=== PATIENT | female | born 1990 | race Caucasian/White ===

== ENCOUNTER 2019-12-23 22:37 | Emergency (ER) | payer OTHER, SELFPAY ==
[2019-12-23 22:39] VITALS: BP 148/105; PULSE 118; RESP 18; TEMP 36.6; O2SAT 100
[2019-12-24] VITALS: BP 139/98; PULSE 119; RESP 18
--- NOTE | 2019-12-24 01:12 | ED.SKABFB ---
HPI - Skin/Abscess/Foreign Bdy General Chief complaint: Skin/Abscess/Foreign Body Stated complaint: sunburn that is turning into hives Time Seen by Provider: 12/24/19 00:18 Source: patient Mode of arrival: ambulatory Limitations: no limitations History of Present Illness HPI narrative: This patient is a 29 year old female who presents for evaluation a sunburn. PAtient states she suffered a sunburn to right lower leg and bilateral hands on Thursday. She has been using aloe vera and CBD cream . She reports the creams are not providing any relief. She denies nausea, vomiting or fever. Related Data Allergies Allergy/AdvReac Type Severity Reaction Status Date / Time Penicillins Allergy Severe Unknown Verified 01/31/19 22:31 hydrocodone Allergy Unknown Unknown Verified 01/31/19 22:31 Review of Systems Review of Systems: All systems reviewed & are unremarkable except as noted in HPI and below Constitutional: Constitutional: Denies chills and Denies fever(s) Cardiovascular: Cardiovascular: Denies chest pain Respiratory: Respiratory: Denies dyspnea Gastrointestinal: Gastrointestinal: Denies nausea Musculoskeletal: Musculoskeletal: Reports myalgias Integumentary/Breasts: Skin/Breast: Reports pruritus and Reports rash PMFSH Past Medical History Medical History (Updated 12/24/19 @ 01:21 by Marquita Pack MD) Patient denies medical problems Surgical History Surgical History (Updated 12/24/19 @ 01:13 by Marquita Pack MD) No significant past surgical history Social History Social History (Updated 12/24/19 @ 01:13 by Marquita Pack MD) Smoking status: Never smoker Exam Const: General: no acute distress and alert Orientation/consciousness: patient oriented x3 Resp: Effort & Inspection: normal respiratory effort GI: GI Palp: Yes Soft to palpation Auscultation: normal bowel sounds Skin: Other: bilateral dorsum of hands and wrist with pink maculopapular rash. Neuro: General: patient oriented x3 and moves all extremities Extrem: General: no pedal edema Psych: Mental Status: mental status grossly normal Affect: normal affect Course Vital Signs Vital signs: Vital Signs Temperature 97.9 F 12/23/19 22:39 Pulse Rate 118 H 12/23/19 22:39 Respiratory Rate 18 12/23/19 22:39 Blood Pressure 148/105 H 12/23/19 22:39 Pulse Oximetry 100 12/23/19 22:39 Temperature 97.9 F 12/23/19 22:39 Pulse Rate 108 H 12/24/19 01:45 Respiratory Rate 18 12/24/19 01:45 Blood Pressure 134/88 12/24/19 01:45 Pulse Oximetry 98 12/24/19 01:45 Discharge Plan Discharge Clinical Impression: Contact dermatitis Qualifiers: Contact dermatitis type: unspecified Patient Disposition: Home, Self-Care Condition: Stable Instructions: Antibiotic Form, Contact Dermatitis (ED) Prescriptions: New loratadine [Claritin] 10 mg tablet 10 mg PO DAILY PRN (Reason: allergy symptoms) Qty: 14 RF: 0 hydrocortisone 2.5 % cream 1 applic TOPICAL TID PRN (Reason: itching) Qty: 20 RF: 0 Follow-up/Referrals: UNKNOWN,DOCTOR [Primary Care Provider] - Discharge Date/Time: 12/24/19 01:50
[2019-12-24] MEDS: methylPREDNISolone SOD SUCC 125 MG VIAL IM (01:41)
[2019-12-24 01:45] VITALS: BP 134/88; PULSE 108; RESP 18; O2SAT 98
== END 2019-12-24 01:50 | disposition home or self-care (01) ==
PROVIDERS: Emergency Provider General Practice
DX: L30.9 Dermatitis, unspecified (principal)
CPT/HCPCS: 96372; 99283; J2930

== ENCOUNTER 2022-08-08 04:16 | Emergency (ER) | payer BC, OTHER, SELFPAY ==
--- NOTE | ~2022-08-08 | CT_ITS ---
CT of the Abdomen and Pelvis: Indication: Abdominal pain Technique: 2.5 mm axial scans were obtained through the abdomen and pelvis following intravenous adm inistration of 100 cc of Omnipaque 350. Dose reduction technique was used on this scan by utilizing a utomated exposure control and iterative reconstruction technique. The dose-length product (DLP) was 1 510.00 mGy-cm. Findings: Scans through the lung bases are unremarkable. The liver, spleen, pancreas, gallbladder, adrenals and kidneys are within normal limits. No evidence of aortic aneurysm. No lymphadenopathy. No bowel obstruction or bowel wall thickening. There is no evidence to suggest acute appendicitis. Images through the pelvis were performed. Urinary bladder unremarkable. No adnexal mass seen. No asci olga lidia. No ascites. Impression: No significant abnormalities seen. Reviewed, dictated and finalized at [facility]. Impression: No significant abnormalities seen.
[2022-08-08 04:21] VITALS: BP 151/89; PULSE 107; RESP 20; TEMP 36.1; O2SAT 100
[2022-08-08 05:25] LABS: Basophils Absolute Auto 0.1 K/mm3 (0.0-0.1); Basophils Percent Auto 0.5 % (0.2-1.2); Eosinophils Absolute Auto 0.2 K/mm3 (0-0.3); Eosinophils Percent Auto 1.5 % (0-4.4); Hematocrit 35.8 % (37.0-47.0); Immature Granulocyte Absolute 0.04 K/mm3 (0.00-0.031); Immature Granulocyte Percent A 0.4 % (0-0.5); Lymphocytes Absolute Auto 2.58 K/mm3 (0.9-3.2); Lymphocytes Percent Auto 23.4 % (18.3-44.2); Mean Corpuscular HGB Conc 30.7 g/dl (32-36); Mean Corpuscular Hemoglobin 22.7 pg (26-34); Mean Platelet Volume 8.9 fl (7.4-10.4); Monocytes Absolute Auto 0.7 K/mm3 (0.1-0.6); Monocytes Percent Auto 6.5 % (2.6-8.5); Neutrophils Absolute Auto 7.5 K/mm3 (1.3-6.7); Neutrophils Percent Auto 67.7 % (45.5-73.1); Platelet Count Result 416 k/mm3 (150-375); Red Blood Count 4.84 M/mm3 (4.2-5.4); Red Cell Distribution Width 16.6 % (11.5-14.5)
[2022-08-08] MEDS: SODIUM CHLORIDE 0.9% IV 1,000 ML 999 ML IV CONT (05:28)
[2022-08-08] MEDS: MORPHINE SULFATE (*CRX) 4 MG/ML INJ IV PUSH (05:28)
[2022-08-08] MEDS: PROCHLORPERAZINE EDISYLATE 10 MG/2 ML VIAL IV PUSH (05:28)
[2022-08-08 05:35] LABS: Alanine Aminotransferase 22 U/L (6-35); Albumin Level 4.5 g/dL (3.5-5.1); Alkaline Phosphatase 92 U/L (38-126); Anion Gap 9 mmol/L (8-16); Aspartate Amino Transferase 23 U/L (14-36); Bilirubin,Total 0.5 mg/dL (0.2-1.3); Blood Urea Nitrogen 9 mg/dL (7-17); Calcium 9.3 mg/dL (8.4-10.2); Carbon Dioxide 26 mmol/L (22-30); Chloride 103 mmol/L (98-107); Estimated CRCL calculation 106 ml/min; Estimated Glomerular Filt Rate > 60; Glucose 98 mg/dL (65-110); Lipase 63 U/L (23-300); Potassium 3.7 mmol/L (3.4-5.0); Sodium 138 mmol/L (137-145)
[2022-08-08 06:04] LABS: Appearance Urine Clear (Clear); Bacteria Urine None Seen /hpf; Bilirubin Urine Negative (Negative); Blood Urine Negative (Negative); Color Urine Yellow (Yellow); Glucose Urine UA Negative (Negative); Ketones Urine Negative (Negative); Leukocyte Esterase Ur Trace LEU/UL (Negative); Nitrate Urine Negative (Negative); Non Pathogenic Casts 0-2; Protein Urine Negative (Negative); RBC Urine 0-2 /hpf (0-2); Specific Grav Ur 1.024 (1.001-1.035); Squamous Epithelial Cell Urine Few /hpf (Few); Urobilinogen Urine 0.2 mg/dL (<2.0); WBC Urine 0-5 /hpf; pH Urine 5.5 (5.0-9.0)
[2022-08-08 06:33] LABS: Anisocytosis 1+ (NORMAL); Platelet Estimate Increased (Adequate)
[2022-08-08 06:34] LABS: Schistocytes None Seen (NORMAL)
--- NOTE | 2022-08-08 06:37 | ED.GENADULT ---
HPI - General Adult General Chief complaint: Nausea/Vomiting/Diarrhea Stated complaint: N/V/D Time Seen by Provider: 08/08/22 04:48 History of Present Illness HPI narrative: Patient 31-year-old female who presents the emergency department with chief complaint of abdominal pain nausea vomiting and diarrhea. Patient reports start about 4 hours prior to arrival reports she had difficulty keeping anything down reports that she had diffuse cramping throughout her abdomen. Patient reports symptoms not improved by anything reports medicine. Related Data Allergies Allergy/AdvReac Type Severity Reaction Status Date / Time Penicillins Allergy Severe Unknown Verified 01/31/19 22:31 hydrocodone Allergy Unknown Unknown Verified 01/31/19 22:31 Review of Systems Review of Systems: A 10 system review of systems was completed on the patient and is negative except for what is stated in the HPI. Nursing and ancillary documentation was reviewed. PMFSH Past Medical History Medical History Patient denies medical problems Surgical History Surgical History No significant past surgical history Social History Social History Smoking status: Never smoker Exam Narrative: GENERAL: Well-appearing, well-nourished, and in no acute distress. HEAD: Normocephalic, atraumatic. EYES: PERRLA and EOMI. ENT: Nares clear, no rhinorrhea or epistaxis. Mucous membranes moist. NECK: Supple. CHEST: Clear to auscultation. No respiratory distress. HEART: Regular rate and rhythm. No murmur heard. Normal peripheral pulses. ABDOMEN: Soft, diffuse mild tenderness, nondistended, normal active bowel sounds. EXTREMITIES: Normal range of motion. No edema. SKIN: Warm, dry, no rash. NEURO: No focal deficits. Alert and oriented x3. PSYCH: Normal mood and affect. Course Vital Signs Vital signs: Vital Signs Temperature 36.1 C L 08/08/22 04:21 Pulse Rate 107 H 08/08/22 04:21 Respiratory Rate 20 08/08/22 04:21 Blood Pressure 151/89 H 08/08/22 04:21 Pulse Oximetry 100 08/08/22 04:21 Temperature 36.1 C L 08/08/22 04:21 Pulse Rate 107 H 08/08/22 04:21 Respiratory Rate 20 08/08/22 04:21 Blood Pressure 151/89 H 08/08/22 04:21 Pulse Oximetry 100 08/08/22 04:21 Medical Decision Making MDM Narrative Medical decision making narrative: Differential diagnosis includes colitis diverticulitis, appendicitis, gastroenteritis. Laboratory studies were obtained which showed a normal CBC with a white count of 11.0 electrolytes including liver enzymes and lipase were normal CT scan of the abdomen pelvis showed no acute abnormality Vital Signs Vital Signs: Vital Signs Temperature 36.1 C L 08/08/22 04:21 Pulse Rate 107 H 08/08/22 04:21 Respiratory Rate 20 08/08/22 04:21 Blood Pressure 151/89 H 08/08/22 04:21 Pulse Oximetry 100 08/08/22 04:21 Temperature 36.1 C L 08/08/22 04:21 Pulse Rate 107 H 08/08/22 04:21 Respiratory Rate 20 08/08/22 04:21 Blood Pressure 151/89 H 08/08/22 04:21 Pulse Oximetry 100 08/08/22 04:21 Lab Data 08/08/22 05:17 08/08/22 05:17 Labs: Lab Results 08/08/22 08/08/22 08/08/22 Range/Units 05:17 05:17 05:17 WBC 11.0 H (4.5-10.0) K/mm3 RBC 4.84 (4.2-5.4) M/mm3 Hgb 11.0 L (12.0-15.0) g/dL Hct 35.8 L (37.0-47.0) % MCV 74.0 L (80-100) fl MCH 22.7 L (26-34) pg MCHC 30.7 L (32-36) g/dl RDW 16.6 H (11.5-14.5) % Plt Count 416 H (150-375) k/mm3 MPV 8.9 (7.4-10.4) fl Immature Gran % (Auto) 0.4 (0-0.5) % Neut % (Auto) 67.7 (45.5-73.1) % Lymph % (Auto) 23.4 (18.3-44.2) % Early % (Auto) 6.5 (2.6-8.5) % Eos % (Auto) 1.5 (0-4.4) % Baso % (Auto) 0.5 (0.2-1.2) % Lymph # (Auto) 2.58 (0.9-3.2)
[2022-08-08 06:51] LABS: Add Urine Microscopic? YES
[2022-08-08 06:55] VITALS: BP 141/84; PULSE 69; RESP 18; TEMP 36.6; O2SAT 99
== END 2022-08-08 07:00 | disposition home or self-care (01) ==
PROVIDERS: Emergency Provider Emergency Medicine
DX: K52.9 Noninfective gastroenteritis and colitis, unspecified (principal)
CPT/HCPCS: 36415; 74177; 80053; 81001; 81025; 83690; 85025; 96361; 96374; 96375; 99284; J0780; J2270; J7030; Q9967

== ENCOUNTER 2023-03-15 03:22 | Emergency (ER) | payer OTHER, SELFPAY ==
[2023-03-15] VITALS (13 sets, daily range): BP systolic 114–159; BP diastolic 74–96; PULSE 89–111; RESP 13–21; TEMP 36.9; O2SAT 97–100
--- NOTE | ~2023-03-15 | XR_ITS ---
EXAMINATION: XR chest 1V portable DATE: 03/15/2023 07:04 INDICATION: Cough. TECHNIQUE: A single frontal view of the chest was obtained. COMPARISON: Chest 2 views 03/15/2018, CT abdomen and pelvis 08/08/2022 FINDINGS: There is no pneumonia, pleural effusion, or pneumothorax. The heart size is normal. IMPRESSION: 1. No acute cardiopulmonary disease. Reviewed, dictated and finalized at location E. [facility]
[2023-03-15 06:48] LABS: Influenza A QL RT-PCR Negative (Negative); Influenza B QL RT-PCR Negative (Negative); RSV RNA, RT-PCR Negative (Negative); SARS-CoV-2 RNA PCR Negative (Negative)
--- NOTE | 2023-03-15 06:58 | ED.GENADULT ---
HPI - General Adult General Chief complaint: Upper Respiratory Infection Stated complaint: i think I have bronchitis Time Seen by Provider: 03/15/23 06:57 History of Present Illness HPI narrative: Patient is a 32-year-old female who presents to the emergency department this morning complaining of cough that started approximately 1 week ago. Patient states that she has been having a difficult time bringing up mucus and feels as though she is super congested. She denies any sick contacts at home or exposure to COVID. Patient denies any fevers at home but admits having mild chills. Patient denies any chest pain, admits to mild shortness of breath, denies any nausea, vomiting, abdominal pain, dysuria, hematuria, constipation, diarrhea, melena, hematochezia. Patient also denies any headaches, dizziness, lightheadedness, blurry visions, focal weakness, numbness and or tingling. There are no other modifying, alleviating, or precipitating factors at this time. Related Data Allergies Allergy/AdvReac Type Severity Reaction Status Date / Time Penicillins Allergy Severe Unknown Verified 03/15/23 05:56 hydrocodone Allergy Unknown Unknown Verified 03/15/23 05:56 Review of Systems Review of Systems: All systems are reviewed and are negative unless stated otherwise in the HPI. [facility] Past Medical History Medical History Patient denies medical problems Surgical History Surgical History No significant past surgical history Social History Social History Smoking status: Never smoker Exam Narrative: General: Alert, awake, afebrile, in no acute distress. HEENT: PERRL, no rhinorrhea, no post nasal drip, oropharynx clear. Neck: Trachea midline, no JVD, no lymphadenopathy. Cardiovascular: Regular rate and rhythm, no murmurs, rubs or gallops, no peripheral edema. Respiratory: Clear to auscultation bilaterally, no tachypnea, no wheezing, no rhonchi, no rubs, no respiratory distress. Abdomen: Soft, nontender, nondistended, no rebound, no guarding, no peritoneal signs. Musculoskeletal: No joint swelling or deformity, normal muscle tone. Skin: No rashes or petechia, no signs of infection. Psychiatric: Alert and oriented, normal behavior and judgment for situation. Neurological: Alert and oriented to person, place, and time. Follows all commands. No focal deficits, speech is clear and fluent. Course Vital Signs Vital signs: Vital Signs Temperature 98.5 F 03/15/23 03:31 Pulse Rate 102 H 03/15/23 03:31 Respiratory Rate 20 03/15/23 03:31 Blood Pressure 159/96 H 03/15/23 03:31 Pulse Oximetry 100 03/15/23 03:31 Oxygen Delivery Room Air 03/15/23 03:31 Temperature 98.5 F 03/15/23 03:31 Pulse Rate 94 03/15/23 07:09 Respiratory Rate 16 03/15/23 07:09 Blood Pressure 125/74 03/15/23 07:09 Pulse Oximetry 100 03/15/23 07:09 Oxygen Delivery Room Air 03/15/23 05:54 Medical Decision Making MDM Narrative Medical decision making narrative: The patient was evaluated by myself in the emergency department. History is obtained from patient who is an independent historian and physical exam was performed. External medical records were reviewed at this time. IV was established and pertinent tests were ordered. Imaging studies obtained included CXR which was independently interpreted by me revealing no acute process, which is pending final radiology interpretation. Differential diagnosis considerations include acute bronchitis, pneumonia, influenza and COVID 19 infection. I have evaluated and discussed social determinants of health with the patient that could potentially impact subsequent diagnosis and treatment plans. On repeat assessment of the patient, reevaluation revealed that the patient is doing well and is in no acute distress.
== END 2023-03-15 07:40 | disposition home or self-care (01) ==
LOC: ANHED 07:35
PROVIDERS: Student in an Organized Health Care Education/Training Program; Emergency Provider Emergency Medicine
DX: J20.9 Acute bronchitis, unspecified (principal); Z20.822 Contact with and (suspected) exposure to COVID-19
CPT/HCPCS: 71045; 87637; 99283

== ENCOUNTER 2023-08-25 19:54 | Emergency (ER) | payer BC, SELFPAY ==
[2023-08-25] VITALS (14 sets, daily range): BP systolic 116–159; BP diastolic 78–118; PULSE 77–116; RESP 15–16; TEMP 36.6; O2SAT 95–100
--- NOTE | ~2023-08-25 | US_ITS ---
Pelvic ultrasound. Clinical History: Pelvic pain, torsion Technique: Realtime transabdominal scanning of the pelvis was performed. Color flow Doppler and Doppl er spectral analysis were performed. Findings: The uterus is anteverted. The endometrial stripe has a thickness of 11 mm. No focal mass i s identified. The right ovary measures 2.7 x 2.1 x 2.2 cm. No significant right ovarian or adnexal mass is seen. The left ovary measures 2.6 x 1.6 x 1.9 cm. No significant left ovarian or adnexal mass is seen. There is no evidence of free fluid in the cul de sac. Impression: Unremarkable pelvic ultrasound. No evidence for torsion. Reviewed, dictated and finalized at location M. Impression: Unremarkable pelvic ultrasound. No evidence for torsion.
--- NOTE | ~2023-08-25 | CT_ITS ---
CT of the Abdomen and Pelvis: Indication: Abdominal pain Technique: 2.5 mm axial scans were obtained through the abdomen and pelvis following intravenous adm inistration of 100 cc of Omnipaque 350. Dose reduction technique was used on this scan by utilizing a utomated exposure control and iterative reconstruction technique. The dose-length product (DLP) was 1 722.34 mGy-cm. COMPARISON: 08/08/2022 Findings: Scans through the lung bases are unremarkable. The liver, spleen, pancreas, gallbladder, adrenals and kidneys are within normal limits. No evidence of aortic aneurysm. No lymphadenopathy. No bowel obstruction or bowel wall thickening. There is no evidence to suggest acute appendicitis. Images through the pelvis were performed. Urinary bladder unremarkable. No pelvic mass seen. No ascit es. Impression: No significant abnormalities seen. Reviewed, dictated and finalized at [facility]. Impression: No significant abnormalities seen.
[2023-08-25 20:08] LABS: Basophils Absolute Auto 0.1 K/mm3 (0.0-0.1); Basophils Percent Auto 0.6 % (0.2-1.2); Eosinophils Absolute Auto 0.2 K/mm3 (0-0.3); Eosinophils Percent Auto 1.8 % (0-4.4); Hematocrit 37.5 % (37.0-47.0); Hemoglobin 11.4 g/dL (12.0-15.0); Immature Granulocyte Absolute 0.05 K/mm3 (0.00-0.031); Immature Granulocyte Percent A 0.4 % (0-0.5); Lymphocytes Absolute Auto 2.25 K/mm3 (0.9-3.2); Lymphocytes Percent Auto 17.8 % (18.3-44.2); Mean Corpuscular HGB Conc 30.4 g/dl (32-36); Mean Corpuscular Hemoglobin 22.4 pg (26-34); Mean Corpuscular Volume 73.8 fl (80-100); Mean Platelet Volume 8.7 fl (7.4-10.4); Monocytes Absolute Auto 0.7 K/mm3 (0.1-0.6); Monocytes Percent Auto 5.5 % (2.6-8.5); Neutrophils Absolute Auto 9.4 K/mm3 (1.3-6.7); Neutrophils Percent Auto 73.9 % (45.5-73.1); Platelet Count Result 399 k/mm3 (150-375); Red Blood Count 5.08 M/mm3 (4.2-5.4); Red Cell Distribution Width 17.2 % (11.5-14.5); White Blood Count 12.7 K/mm3 (4.5-10.0)
[2023-08-25 20:20] LABS: Alanine Aminotransferase 17 U/L (6-35); Albumin Level 4.8 g/dL (3.5-5.1); Alkaline Phosphatase 82 U/L (38-126); Anion Gap 13 mmol/L (4-12); Aspartate Amino Transferase 19 U/L (14-36); Bilirubin,Total 0.5 mg/dL (0.2-1.3); Blood Urea Nitrogen 15 mg/dL (7-17); Calcium 10.1 mg/dL (8.4-10.2); Carbon Dioxide 21 mmol/L (22-30); Chloride 105 mmol/L (98-107); Estimated CRCL calculation 104 ml/min; Estimated Glomerular Filt Rate > 60; Glucose 111 mg/dL (65-110); Lipase 54 U/L (23-300); Potassium 4.2 mmol/L (3.4-5.0); Sodium 139 mmol/L (137-145)
[2023-08-25 20:52] LABS: Platelet Estimate Adequate (Adequate); Polychromasia 1+
[2023-08-25 20:53] LABS: Ovalocytes 1+; Schistocytes None Seen
[2023-08-25 22:34] LABS: Appearance Urine Cloudy (Clear); Bacteria Urine Rare /hpf; Bilirubin Urine 1+ (Negative); Blood Urine Negative (Negative); Color Urine Dark Yellow (Yellow); Glucose Urine UA Negative (Negative); Ketones Urine Negative (Negative); Leukocyte Esterase Ur Negative LEU/UL (Negative); Nitrate Urine Negative (Negative); Non Pathogenic Casts 0-2; Protein Urine Negative (Negative); RBC Urine 0-2 /hpf (0-2); Specific Grav Ur 1.023 (1.001-1.035); Squamous Epithelial Cell Urine Few /hpf (Few); Urobilinogen Urine 0.2 mg/dL (<2.0); WBC Urine 0-5 /hpf (0-3)
[2023-08-25 22:45] LABS: Add Urine Microscopic? YES
[2023-08-25] MEDS: SODIUM CHLORIDE 0.9% IV 2,000 ML 999 ML IV CONT (23:59)
[2023-08-26] VITALS (9 sets, daily range): BP systolic 100–135; BP diastolic 68–85; PULSE 67–86; RESP 14–18; O2SAT 97–100
[2023-08-26] MEDS: ONDANSETRON INJ 4 MG/2 ML VIAL IV PUSH
[2023-08-26] MEDS: KETOROLAC 15 MG/ML VIAL (*BKC) IV PUSH (00:01)
--- NOTE | 2023-08-26 02:11 | ED.GENADULT ---
HPI - General Adult General Chief complaint: Urogenital-Female Stated complaint: RLQ abd pain Time Seen by Provider: 08/25/23 23:05 History of Present Illness HPI narrative: this is a 32-year-old female presenting with right lower quadrant pain. Patient says the pain started last night it is a sharp pain in her right lower quadrant radiating to her groin. Pain has been getting worse. She feels like when she has had a UTI in the past. It is worse with movement. No alleviating factors. She did have an episode of nausea and vomiting. She denies dysuria urinary urgency or frequency. No fevers chills chest pain difficulty breathing. patient is not sexually active. No vaginal discharge or irritation. Related Data Allergies Allergy/AdvReac Type Severity Reaction Status Date / Time Penicillins Allergy Severe Unknown Verified 03/15/23 05:56 hydrocodone Allergy Unknown Unknown Verified 03/15/23 05:56 [facility] Past Medical History Medical History Patient denies medical problems Surgical History Surgical History No significant past surgical history Social History Social History Smoking status: Never smoker Exam Narrative: APPEARANCE: No apparent distress. Head: atraumatic. EYES: EOMI, NOSE: Atraumatic NECK: Trachea midline RESPIRATORY: No increased rate of breathing, Clear to auscultation CARDIOVASCULAR: RRR, no peripheral edema ABDOMINAL: tenderness to palpation in the right lower quadrant although exam is limited by obesity. No guarding or rebound. No CVA tenderness. MUSCULOSKELETAl: No obvious deformities NEURO: Alert. Moving 4/4 extremities SKIN:: Warm, dry. Normal color PSYCHIATRIC: Normal affect Course Vital Signs Vital signs: Vital Signs Temperature 98 F 08/25/23 19:55 Pulse Rate 116 H 08/25/23 19:55 Respiratory Rate 15 08/25/23 19:55 Blood Pressure 158/111 H 08/25/23 19:55 Pulse Oximetry 95 08/25/23 19:55 Oxygen Delivery Room Air 08/25/23 19:55 Temperature 98 F 08/25/23 19:55 Pulse Rate 74 08/26/23 05:13 Respiratory Rate 15 08/26/23 05:13 Blood Pressure 100/85 08/26/23 05:13 Pulse Oximetry 100 08/26/23 05:13 Oxygen Delivery Room Air 08/25/23 19:55 Medical Decision Making [facility] Narrative Medical decision making narrative: -Course: 32-year-old female presenting with right lower quadrant abdominal pain. Laboratory studies CT abdomen pelvis and pelvic ultrasound negative definitive cause. Patient is vital signs improved with pain medication. Patient will be discharged with pain medication and primary care follow-up. Given return precautions for fevers severe pain intractable nausea vomiting or if her condition worsens. -DDX includes but is not limited to: Appendicitis, colitis, constipation, gas pain, ovarian cysts, torsion UTI, muscle strain -Co-morbidities complicating care: obesity -Social determinants of health: Works at [employer] -Independent interpretation of studies: white count 12.7 hemoglobin 11.4. Metabolic panel within normal limits. Urine indicative infection. CT abdomen pelvis unremarkable. Pelvic ultrasound showed no signs of torsion. -Interventions: 2 L normal saline, Toradol, Tylenol, Zofran -Shared decision making / Disposition: discharge -RX Motrin Tylenol Robaxin Vital Signs Vital Signs: Vital Signs Temperature 98 F 08/25/23 19:55 Pulse Rate 116 H 08/25/23 19:55 Respiratory Rate 15 08/25/23 19:55 Blood Pressure 158/111 H 08/25/23 19:55 Pulse Oximetry 95 08/25/23 19:55 Oxygen Delivery Room Air 08/25/23 19:55 Temperature 98 F 08/25/23 19:55 Pulse Rate 74 08/26/23 05:13 Respiratory Rate 15 08/26/23 05:13 Blood Pressure 100/85 08/26/23 05:13 Pulse Oximetry 100 08/26/23 05:13 Oxygen Delivery Room Air 08/25/23 19:55
[2023-08-26] MEDS: ACETAMINOPHEN 500 MG TABLET 1000 MG PO (03:45)
== END 2023-08-26 06:05 | disposition home or self-care (01) ==
PROVIDERS: Emergency Provider Emergency Medicine
DX: R10.31 Right lower quadrant pain (principal); E66.9 Obesity, unspecified; Z68.42 Body mass index [BMI] 45.0-49.9, adult
CPT/HCPCS: 36415; 74177; 76856; 80053; 81001; 81025; 83690; 85025; 96361; 96374; 96375; 99284; A9270; J1885; J2405; J7030; Q9967

== ENCOUNTER 2023-11-14 17:01 | Emergency (ER) | payer BC, SELFPAY ==
[2023-11-14] VITALS (17 sets, daily range): BP systolic 125–147; BP diastolic 78–91; PULSE 79–117; RESP 12–22; TEMP 36.4; O2SAT 97–100
[2023-11-14 21:54] LABS: Basophils Percent Auto 0.4 % (0.2-1.2); Eosinophils Absolute Auto 0.1 K/mm3 (0-0.3); Eosinophils Percent Auto 0.8 % (0-4.4); Hematocrit 34.8 % (37.0-47.0); Hemoglobin 10.6 g/dL (12.0-15.0); Immature Granulocyte Absolute 0.03 K/mm3 (0.00-0.031); Immature Granulocyte Percent A 0.3 % (0-0.5); Lymphocytes Absolute Auto 2.12 K/mm3 (0.9-3.2); Lymphocytes Percent Auto 22.1 % (18.3-44.2); Mean Corpuscular HGB Conc 30.5 g/dl (32-36); Mean Corpuscular Hemoglobin 22.6 pg (26-34); Mean Platelet Volume 8.7 fl (7.4-10.4); Monocytes Absolute Auto 0.6 K/mm3 (0.1-0.6); Monocytes Percent Auto 6.6 % (2.6-8.5); Neutrophils Absolute Auto 6.7 K/mm3 (1.3-6.7); Neutrophils Percent Auto 69.8 % (45.5-73.1); Platelet Count Result 398 k/mm3 (150-375); Red Cell Distribution Width 16.6 % (11.5-14.5); White Blood Count 9.6 K/mm3 (4.5-10.0)
[2023-11-14 21:59] LABS: Appearance Urine Cloudy (Clear); Bacteria Urine 1+ /hpf; Bilirubin Urine Negative (Negative); Blood Urine Negative (Negative); Color Urine Yellow (Yellow); Glucose Urine UA Negative (Negative); Ketones Urine 2+ mg/dL (Negative); Leukocyte Esterase Ur 1+ LEU/UL (Negative); Nitrate Urine Negative (Negative); Non Pathogenic Casts 0-2; Protein Urine Negative (Negative); RBC Urine 0-2 /hpf (0-2); Specific Grav Ur 1.026 (1.001-1.035); Squamous Epithelial Cell Urine Few /hpf (Few); Urobilinogen Urine 0.2 mg/dL (<2.0); pH Urine 5.5 (5.0-9.0)
[2023-11-14 22:19] LABS: Alanine Aminotransferase 18 U/L (6-35); Albumin Level 4.5 g/dL (3.5-5.1); Alkaline Phosphatase 78 U/L (38-126); Anion Gap 12 mmol/L (4-12); Anisocytosis 1+; Aspartate Amino Transferase 20 U/L (14-36); Bilirubin,Total 0.5 mg/dL (0.2-1.3); Blood Urea Nitrogen 9 mg/dL (7-17); Calcium 9.5 mg/dL (8.4-10.2); Carbon Dioxide 23 mmol/L (22-30); Chloride 102 mmol/L (98-107); Estimated CRCL calculation 131 ml/min; Estimated Glomerular Filt Rate > 60; Glucose 97 mg/dL (65-110); Hypochromasia 1+; Lipase 39 U/L (23-300); Microcytosis 1+ (NORMAL); Platelet Clumps Present; Platelet Estimate Slightly Increased (Adequate); Potassium 3.8 mmol/L (3.4-5.0); Schistocytes None Seen; Sodium 137 mmol/L (137-145)
[2023-11-14 22:20] LABS: Add Urine Microscopic? YES
[2023-11-14] MEDS: ONDANSETRON INJ 4 MG/2 ML VIAL IV PUSH (22:29)
[2023-11-14] MEDS: SODIUM CHLORIDE 0.9% IV 2,000 ML 999 ML IV CONT (22:29)
--- NOTE | 2023-11-14 23:15 | ED.GENADULT ---
HPI - General Adult General Chief complaint: Nausea/Vomiting/Diarrhea Stated complaint: vomiting Time Seen by Provider: 11/14/23 21:18 History of Present Illness HPI narrative: This is a 32-year-old female presenting ED with chief of nausea and vomiting. Patient had multiple episodes of nausea and vomiting throughout the day today. No diarrhea. She has some diffuse abdominal cramping but no focal tenderness. No fever chills chest pain breathing urinary symptoms. Related Data Allergies Allergy/AdvReac Type Severity Reaction Status Date / Time Penicillins Allergy Severe Unknown Verified 11/14/23 17:02 hydrocodone Allergy Unknown Unknown Verified 11/14/23 17:02 [facility] Past Medical History Medical History Patient denies medical problems Surgical History Surgical History No significant past surgical history Social History Social History Smoking status: Never smoker Exam Narrative: APPEARANCE: No apparent distress. Head: atraumatic. EYES: EOMI, NOSE: Atraumatic NECK: Trachea midline RESPIRATORY: No increased rate of breathing CTAB CARDIOVASCULAR: RRR, ABDOMINAL: Obese, nontender no guarding or rebound MUSCULOSKELETAl: No obvious deformities NEURO: Alert. Moving 4/4 extremities SKIN:: Warm, dry. Normal color PSYCHIATRIC: Normal affect Course Vital Signs Vital signs: Vital Signs Temperature 97.6 F 11/14/23 17:02 Pulse Rate 117 H 11/14/23 17:02 Respiratory Rate 18 11/14/23 17:02 Blood Pressure 147/90 H 11/14/23 17:02 Pulse Oximetry 100 11/14/23 17:02 Oxygen Delivery Room Air 11/14/23 17:02 Temperature 97.6 F 11/14/23 20:10 Pulse Rate 85 11/14/23 21:47 Respiratory Rate 15 11/14/23 21:47 Blood Pressure 128/87 11/14/23 21:46 Pulse Oximetry 100 11/14/23 21:47 Oxygen Delivery Room Air 11/14/23 17:02 Medical Decision Making MDM Narrative Medical decision making narrative: -Course: 29-year-old female presenting with 1 day of nausea and vomiting. Patient initially tachycardic but this normalized without intervention. Patient was given Zofran fluids in the ED with improvement. Laboratory studies unremarkable. Urine had some white blood cells but was a contaminated catch and the patient is asymptomatic. We will await culture results. Abdominal exam is benign. Patient discharged with Zofran. Given return precautions. Patient provided a work note -DDX includes but is not limited to: Gastroenteritis, viral syndrome, nausea and vomiting, dyspepsia -Co-morbidities complicating care: Morbid obesity -Social determinants of health: Works at [employer], denies drugs or alcohol -Independent interpretation of studies: Labs reviewed -Interventions: 2 L normal saline, mg Zofran -Shared decision making / Disposition: Discharged -RX Zofran Vital Signs Vital Signs: Vital Signs Temperature 97.6 F 11/14/23 17:02 Pulse Rate 117 H 11/14/23 17:02 Respiratory Rate 18 11/14/23 17:02 Blood Pressure 147/90 H 11/14/23 17:02 Pulse Oximetry 100 11/14/23 17:02 Oxygen Delivery Room Air 11/14/23 17:02 Temperature 97.6 F 11/14/23 20:10 Pulse Rate 85 11/14/23 21:47 Respiratory Rate 15 11/14/23 21:47 Blood Pressure 128/87 11/14/23 21:46 Pulse Oximetry 100 11/14/23 21:47 Oxygen Delivery Room Air 11/14/23 17:02 Lab Data 11/14/23 21:48 11/14/23 21:48 Labs: Lab Results 11/14/23 Range/Units 21:48 WBC 9.6 (4.5-10.0) K/mm3 RBC 4.70 (4.2-5.4) M/mm3 Hgb 10.6 L (12.0-15.0) g/dL Hct 34.8 L (37.0-47.0) % MCV 74.0 L (80-100) fl MCH 22.6 L (26-34) pg MCHC 30.5 L (32-36) g/dl RDW 16.6 H (11.5-14.5) % Plt Count 398 H (150-375) k/mm3 MPV 8.7 (7.4-10.4) fl Immature Gran % (Auto) 0.3 (0-0.5) % Neut % (Auto) 69
[2023-11-15 00:36] VITALS: BP 148/98; PULSE 78; RESP 18; O2SAT 100
== END 2023-11-15 00:38 | disposition home or self-care (01) ==
PROVIDERS: Emergency Provider Emergency Medicine
DX: R11.2 Nausea with vomiting, unspecified (principal)
CPT/HCPCS: 36415; 80053; 81001; 81025; 83690; 85025; 87086; 87088; 96361; 96374; 99284; J2405; J7030

== ENCOUNTER 2024-02-14 03:39 | Emergency (ER) | payer BC, SELFPAY ==
[2024-02-14 03:45] VITALS: BP 133/81; PULSE 104; RESP 18; TEMP 36.1; O2SAT 100
--- NOTE | 2024-02-14 04:06 | ED.ANIMALBIT ---
HPI - Animal Bite General Chief Complaint: Animal Bite Stated Complaint: bites to both legs Time Seen by Provider: 02/14/24 03:48 History of Present Illness HPI narrative: Patient is a 33-year-old female who presents to the emergency department this evening complaining of a bug bites to her left lower extremity. Patient states that she woke up 1 day and noticed the bites. Patient did not see what possibly but, has not seen any spiders around the home and does not believe that she has bedbugs. Patient does not believe that her tetanus is up-to-date. Denies any additional symptoms at home including any fevers or chills. Admits that the areas of erythema along her left lower extremity does itch. Denies any similar symptoms in the past. Bug bites to any other area on her body. 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 Patient states that she has been using some hydrocortisone cream but has not seen any improvement of her symptoms. Denies any additional symptoms or concerns at this time. Related Data Allergies Allergy/AdvReac Type Severity Reaction Status Date / Time Penicillins Allergy Severe Unknown Verified 02/14/24 03:54 hydrocodone Allergy Unknown Unknown Verified 02/14/24 03:54 Review of Systems Review of Systems: All systems are reviewed and are negative unless stated otherwise in the HPI. [facility] Past Medical History Medical History Patient denies medical problems Surgical History Surgical History No significant past surgical history Social History Social History Smoking status: Never smoker Exam Narrative: General: Alert, awake, afebrile, in no acute distress. HEENT: PERRL, no rhinorrhea, no post nasal drip, oropharynx clear. Cardiovascular: Regular rate and rhythm, no murmurs, rubs or gallops, no peripheral edema. Respiratory: Clear to auscultation bilaterally, no tachypnea, no wheezing, no rhonchi, no rubs, no respiratory distress. Abdomen: Soft, nontender, nondistended, no rebound, no guarding, no peritoneal signs. Musculoskeletal: No joint swelling or deformity, normal muscle tone. Skin: Multiple small round areas of erythema with some skin excoriation along the patient's left lower extremity, no abscess noted, no drainage. Neurological: Alert and oriented to person, place, and time. Follows all commands. No focal deficits, speech is clear and fluent. Course Vital Signs Vital signs: Vital Signs Temperature 97.0 F L 02/14/24 03:45 Pulse Rate 104 H 02/14/24 03:45 Respiratory Rate 18 02/14/24 03:45 Blood Pressure 133/81 02/14/24 03:45 Pulse Oximetry 100 02/14/24 03:45 Temperature 97.0 F L 02/14/24 03:45 Pulse Rate 104 H 02/14/24 03:45 Respiratory Rate 18 02/14/24 03:45 Blood Pressure 133/81 02/14/24 03:45 Pulse Oximetry 100 02/14/24 03:45 MDM - Animal Bite MDM Narrative Medical decision making narrative: The patient was evaluated by myself in the emergency department. History is obtained from patient who is an independent historian and physical exam was performed. External medical records were reviewed at this time. Differential diagnosis considerations include cellulitis, abscess, contact dermatitis, bug bite. Comorbidities impacting this visit include none. I have evaluated and discussed social determinants of health with the patient that could potentially impact subsequent diagnosis and treatment plans. On repeat assessment of the patient, reevaluation revealed that the patient is doing well and is in no acute distress. Patient symptoms have remained stable since she arrived to our emergency department. Repeat vital signs were all reviewed and noted to be stable. Differential diagnosis and treatment plan were discussed with the pa
[2024-02-14] MEDS: TETANUS,DIPHTHERIA,AC PERTUSSIS ADULT (0.5 ML) BOOSTRIX IM (04:16)
== END 2024-02-14 04:22 | disposition home or self-care (01) ==
PROVIDERS: Emergency Provider Emergency Medicine
DX: L03.116 Cellulitis of left lower limb (principal); Z23 Encounter for immunization
CPT/HCPCS: 90471; 90715; 99283

== ENCOUNTER 2024-03-19 18:40 | Emergency (ER) | payer BC, SELFPAY ==
--- NOTE | ~2024-03-19 | CT_ITS ---
EXAMINATION: CT brain wo con DATE: 03/19/2024 19:41 INDICATION: Headache TECHNIQUE: Computed tomography (CT) of the head was performed without intravenous contrast. The mA wa s adjusted according to patient size. Iterative reconstruction technique was employed. Exam dose: 68 1.00 mGy-cm total exam DLP. COMPARISON: None FINDINGS: No intracranial mass lesion or hemorrhage or cerebrovascular accident. No midline shift or mass effect. Normal humphrey-white matter differentiation. Normal ventricular size. No subdural or epidural hematoma. No fracture or bone destruction of the cranial vault. The mastoid air cells and included paranasal sinuses are normally developed and aerated. IMPRESSION: Negative Reviewed, dictated and finalized at [facility] Reviewed, dictated and finalized at [facility] [employer] [facility] IMPRESSION: Negative
[2024-03-19 18:46] VITALS: BP 151/97; PULSE 106; RESP 20; TEMP 36.4; O2SAT 100
--- NOTE | 2024-03-19 19:02 | PC.NURSE ---
Per Dr Guerrero, he states to keep patient at 5mg cardizem at this time
[2024-03-19] MEDS: diphenhydrAMINE HCl INJ 50 MG/ML VIAL 25 MG IV PUSH (19:25)
[2024-03-19] MEDS: PROCHLORPERAZINE EDISYLATE 10 MG/2 ML VIAL IV PUSH (19:25)
[2024-03-19] MEDS: dexAMETHasone SOD PHOS INJ 10 MG/ML 1 ML VIAL IV PUSH (19:25)
[2024-03-19] MEDS: MAGNESIUM SULF 2 GM/WATER 50ML 2 GM/50 ML BAG IVPB (19:25)
[2024-03-19] MEDS: SODIUM CHLORIDE 0.9% IV 1,000 ML 999 ML IV CONT (19:26)
--- NOTE | 2024-03-19 19:30 | ED.HA ---
HPI - Headache General Chief Complaint: Headache Stated Complaint: headache Time Seen by Provider: 03/19/24 18:59 History of Present Illness HPI Narrative: 33-year-old female with no pertinent past medical history aside from chronic headaches presenting to the emergency room with chief complaint of a migraine headache. She states that occurred about 10:00 p.m. last night and has been 10/10 intensity since then and was limiting her work today. She states she was nauseous and vomited twice but presently not feeling nauseous or any further vomiting earlier today. Tried [id number] medications with no relief of her headache. States that she previously was on Imitrex for migraine headaches but that that was not working for her previously. Has not seen a neurologist or a specialist but her headaches since childhood. Endorses no fever, chills, vision changes, abdominal pain, chest pain, shortness a breath, weakness or fatigue. States this feels very similar to her usual migraine headaches but she also endorses that she previously had a cyst found on her brain and she was concerned that that could be related to her headaches. Denies any trauma or injuries. Related Data Allergies Allergy/AdvReac Type Severity Reaction Status Date / Time Penicillins Allergy Severe Unknown Verified 03/19/24 18:43 hydrocodone Allergy Unknown Unknown Verified 03/19/24 18:43 Review of Systems Review of Systems: As reviewed above in HPI [facility] Past Medical History Medical History Patient denies medical problems Surgical History Surgical History No significant past surgical history Social History Social History Smoking status: Never smoker Exam Narrative: GENERAL: tearful and appears uncomfortable but not in any acute distress, pleasant and cooperative, answers all my questions appropriately and awake and alert. HEAD: [Normocephalic, atraumatic.] EYES: [PERRLA and EOMI.] ENT: Nares clear, no rhinorrhea or epistaxis. Mucous membranes moist. NECK: Supple. CHEST: [Clear to auscultation. No respiratory distress.] HEART: [Regular rate and rhythm]. No murmur heard. [Normal peripheral pulses.] ABDOMEN: [Soft, nondistended], [nontender], [No rigidity or guarding] EXTREMITIES: Normal range of motion. [No edema.] SKIN: Warm, dry, no rash. NEURO: [No focal deficits]. Alert and oriented [x3.] PSYCH: [Normal mood and affect.] Course Vital Signs Vital signs: Vital Signs Temperature 36.4 C 03/19/24 18:46 Pulse Rate 106 H 03/19/24 18:46 Respiratory Rate 20 03/19/24 18:46 Blood Pressure 151/97 H 03/19/24 18:46 Pulse Oximetry 100 03/19/24 18:46 Oxygen Delivery Room Air 03/19/24 18:46 Temperature 36.4 C 03/19/24 18:46 Pulse Rate 106 H 03/19/24 18:46 Respiratory Rate 20 03/19/24 18:46 Blood Pressure 151/97 H 03/19/24 18:46 Pulse Oximetry 100 03/19/24 18:46 Oxygen Delivery Room Air 03/19/24 18:46 MDM - Headache MDM Narrative Medical decision making narrative: 33-year-old female with a past medical history of headaches presenting to the Emergency Department with complaints of a migraine headache. She states that this resembles her usual headaches but was not responsive to [id number] pain medications. She states she had some associated nausea and vomiting presently feels okay without any nauseousness. Endorses no fever, chills or vision changes. No weakness or fatigue. She has a benign neurological assessment with symmetric strength sensation throughout. No focal deficits appreciated. Extraocular movements are intact. No cranial nerve deficits. Vital sign shows slight tachycardia with a pulse of 106 but no fever, hypoxia or significant blood pressure concerns. differential diagnosis includes migraine headache, tension type headache, cluster headache. Given her history of intracranial cyst this could also be potentially causing her headache. low suspicion for subarachnoid process such as hemorrhage or any other kind of brain bleed given the lack of trauma or any other red flag symptoms. She overall appears well but is tearful. She will be treated symptomatically with a migraine cocktail including Compazine, Benadryl, fluid bolus, Decadron, magnesium. test was obtained as well as CBC, CMP and a test. Patient will be re-evaluated frequently and reassessed after medication has taken effect. Patient had complete symptomatic resolution of her headache after the medication cocktail. CT scan was independently reviewed by myself and I do not appreciate any kind of intracranial process such as subarachnoid hemorrhage or any brain bleed. CT scan read by radiology confirms normal CT scan. Laboratory studies showed no leukocytosis and chronic anemia with hemoglobin 10.6 which is at her baseline on review of the EMR. Normal platelets. Electrolyte panel within normal limits, normal BUN and creatinine, normal glucose and CMP. Patient was deemed stable for discharge home at this time given the symptomatic resolution and a negative workup here in the emergency department. She will follow-up with her primary care provider outpatient for continued care and treatment of her chronic headaches. Differential Diagnosis Differential diagnosis: Likely migraine, tension headache, subarachnoid hemorrhage, headache, meningitis and sinusitis Medical Records Attestation: I reviewed the patient's medical records. Lab Data Attestation: I reviewed the patient's lab results. 03/19/24 19:24 03/19/24 19:24 Labs: Lab Results 03/19/24 03/19/24 Range/Units 19:24 21:36 WBC 8.1 (4.5-10.0) K/mm3 RBC 4.76 (4.2-5.4) M/mm3 Hgb 10.6 L (12.0-15.0) g/dL Hct 34.6 L (37.0-47.0) % MCV 72.7 L (80-100) fl MCH 22.3 L (26-34) pg MCHC 30.6 L (32-36) g/dl RDW 17.3 H (11.5-14.5) % Plt Count 387 H (150-375) k/mm3 MPV 8.6 (7.4-10.4) fl Immature Gran % (Auto) 0.5 (0-0.5) % Neut % (Auto) 68.1 (45.5-73.1) % Lymph % (Auto) 21.7 (18.3-44.2) % [place] % (Auto) 7.1 (2.6-8.5) % Eos % (Auto) 1.9 (0-4.4) % Baso % (Auto) 0.7 (0.2-1.2) % Lymph # (Auto) 1.75 (0.9-3.2) K/mm3 [place] # (Auto) 0.6 (0.1-0.6) K/mm3 Eos # (Auto) 0.2 (0-0.3) K/mm3 Baso # (Auto) 0.1 (0.0-0.1) K/mm3 Abs Immat Gran (auto) 0.04 H (0.00-0.031) K/mm3 Absolute Neuts (auto) 5.5 (1.3-6.7) K/mm3 Absolute Nucleated RBC 0.000 (0.0-0.012) K/mm3 Nucleated RBC % 0.0 (0.0-0.2) % Platelet Estimate Slightly increased (Adequate) Anisocytosis 1+ Microcytosis 1+ (NORMAL) Schistocytes None seen Sodium 136 L (137-145) mmol/L Potassium 3.8 (3.4-5.0) mmol/L Chloride 104 (98-107) mmol/L Carbon Dioxide 23 (22-30) mmol/L Anion Gap 9 (4-12) mmol/L BUN 9 (7-17) mg/dL Creatinine 0.70 (0.7-1.0) mg/dL Estim Creat Clear Calc 118 ml/min Estimated GFR > 60 (59 - ) Glucose 110 (65-110) mg/dL Calcium 9.3 (8.4-10.2) mg/dL Magnesium 2.0 (1.6-2.3) mg/dL Total Bilirubin 0.5 (0.2-1.3) mg/dL AST 20 (14-36) U/L ALT 17 (6-35) U/L Alkaline Phosphatase 84 (38-126) U/L Total Protein 8.0 (6.3-8.2) g/dL Albumin 4.2 (3.5-5.1) g/dL POC Urine HCG, Qual Negative (Negative) Imaging Data Attestation: I personally reviewed and interpreted this imaging study as follows: Radiologist's impression: Impressions Head CT 03/19/24 19:47 IMPRESSION: Negative Discharge Plan Discharge Clinical Impression: Headache, Migraine Patient Disposition: Home, Self-Care Condition: Stable Instructions: Antibiotic Form, Migraine Headache (ED), Acute Headache (ED) Additional Instructions: Return to the ER at any point with any new or worsening symptoms but follow-up with your primary care provider for treatment of her chronic headaches and potential referral to neurology for continued care outpatient. Prescriptions: No Action acetaminophen 500 mg tablet 1,000 mg PO TID PRN (Reason: jesus) 7 Days Qty: 42 0RF ibuprofen 800 mg tablet 800 mg PO TID PRN (Reason: pain) 7 Days Qty: 21 0RF methocarbamol 750 mg tablet 1,500 mg PO TID Qty: 30 0RF benzonatate 100 mg capsule 100 mg PO BID PRN (Reason: cough) Qty: 20 0RF ondansetron 4 mg tablet,disintegrating 4 mg PO Q8H PRN (Reason: nausea and vomiting) Qty: 30 0RF sulfamethoxazole-trimethoprim [Bactrim DS] 800-160 mg tablet 1 tablet PO Q12H 5 Days Qty: 10 0RF Follow-up/Referrals: PHYSICIAN,[employer] [Primary Care Provider] - Stand Alone Forms: Work/School Release IP Time of Disposition: 21:23
--- NOTE | 2024-03-19 19:33 | PC.NURSE ---
medications given. patient tolerated well. Warm blanket given.
[2024-03-19 19:37] LABS: Basophils Absolute Auto 0.1 K/mm3 (0.0-0.1); Basophils Percent Auto 0.7 % (0.2-1.2); Eosinophils Absolute Auto 0.2 K/mm3 (0-0.3); Eosinophils Percent Auto 1.9 % (0-4.4); Hematocrit 34.6 % (37.0-47.0); Hemoglobin 10.6 g/dL (12.0-15.0); Immature Granulocyte Absolute 0.04 K/mm3 (0.00-0.031); Immature Granulocyte Percent A 0.5 % (0-0.5); Lymphocytes Absolute Auto 1.75 K/mm3 (0.9-3.2); Lymphocytes Percent Auto 21.7 % (18.3-44.2); Mean Corpuscular HGB Conc 30.6 g/dl (32-36); Mean Corpuscular Hemoglobin 22.3 pg (26-34); Mean Corpuscular Volume 72.7 fl (80-100); Mean Platelet Volume 8.6 fl (7.4-10.4); Monocytes Absolute Auto 0.6 K/mm3 (0.1-0.6); Monocytes Percent Auto 7.1 % (2.6-8.5); Neutrophils Absolute Auto 5.5 K/mm3 (1.3-6.7); Neutrophils Percent Auto 68.1 % (45.5-73.1); Platelet Count Result 387 k/mm3 (150-375); Red Blood Count 4.76 M/mm3 (4.2-5.4); Red Cell Distribution Width 17.3 % (11.5-14.5); White Blood Count 8.1 K/mm3 (4.5-10.0)
[2024-03-19 19:54] LABS: Alanine Aminotransferase 17 U/L (6-35); Albumin Level 4.2 g/dL (3.5-5.1); Alkaline Phosphatase 84 U/L (38-126); Anion Gap 9 mmol/L (4-12); Aspartate Amino Transferase 20 U/L (14-36); Bilirubin,Total 0.5 mg/dL (0.2-1.3); Blood Urea Nitrogen 9 mg/dL (7-17); Calcium 9.3 mg/dL (8.4-10.2); Carbon Dioxide 23 mmol/L (22-30); Chloride 104 mmol/L (98-107); Estimated CRCL calculation 118 ml/min; Estimated Glomerular Filt Rate > 60; Glucose 110 mg/dL (65-110); Potassium 3.8 mmol/L (3.4-5.0); Sodium 136 mmol/L (137-145)
[2024-03-19 20:06] LABS: Anisocytosis 1+; Platelet Estimate Slightly Increased (Adequate)
[2024-03-19 20:07] LABS: Microcytosis 1+ (NORMAL); Schistocytes None Seen
[2024-03-19 21:38] LABS: BEDSIDEPREGUCG Negative (Negative)
== END 2024-03-19 21:36 | disposition home or self-care (01) ==
PROVIDERS: Emergency Provider Student in an Organized Health Care Education/Training Program
DX: G43.909 Migraine, unspecified, not intractable, without status migrainosus (principal)
CPT/HCPCS: 36415; 70450; 80053; 81025; 83735; 85025; 96365; 96366; 96375; 99284; J0780; J1100; J1200; J3475; J7030